=== PATIENT | female | born 1995 | race Caucasian/White ===

== ENCOUNTER 2016-02-26 23:01 | Emergency (ER) ==
[2016-02-26 23:01] VITALS: BMI 20.1
--- NOTE | 2016-02-26 23:07 | ED.PDOC ---
General ED Provider: Dr. MARISOL MCKEON-ER Chief Complaint: Sore Throat Stated Complaint: my throat is sore Time Seen by Physician: 23:05 Mode of Arrival: Walk-In Information Source: Patient Primary Care Provider: MARISOL MCKEON Nursing and Triage Documentation Reviewed and Agree: Yes EENT Complaint Exam - Throat Complaint/Exam Onset/Duration: 24hrs Symptoms Are: Still present Timimg: Constant Initial Severity: Mild Current Severity: Mild Aggravating: Reports: Eating Alleviating: Reports: None Associated Signs and Symptoms: Reports: Fever, Nasal congestion. Denies: Dysphagia, Drooling, Foreign body sensation, Chills, Cough, Wheezing, Hoarseness , Sinus discomfort, Difficulty breathing, Lethargy, Irritability, Decreased activity, Vomiting, Diarrhea, Decreased hearing, Ear drainage Related History: Reports: Similar Episode Uvula Midline: Yes Emily-tonsillar Fluctuence: No Scarlatinaform Rash Present: No Exanthem: Present: Pharynx Stridor Present: No Sinus Tenderness Present: No Tonsillar Hypertrophy Present: No Tonsillar Exudate Present: No Emily-tonsillar Swelling Present: No Adenopathy Present: No Splenomegaly Present: No Differential Diagnoses: Pharyngitis Review of Systems - Review Of Systems Constitutional: Reports: Fever Eyes: Reports: No symptoms Ears, Nose, Mouth, Throat: Reports: Throat pain, Throat swelling Respiratory: Reports: No symptoms Cardiac: Reports: No symptoms GI: Reports: No symptoms : Reports: No symptoms Musculoskeletal: Reports: No symptoms Skin: Reports: No symptoms Neurological: Reports: No symptoms Endocrine: Reports: No symptoms Hematologic/Lymphatic: Reports: No symptoms All Other Systems: Reviewed and Negative Past Medical History - Past Medical History Endocrine: Reports: None Cardiovascular: Reports: None Respiratory: Reports: None Hematological: Reports: None Gastrointestinal: Reports: None Genitourinary: Reports: None Neuro/Psych: Reports: Migraine, Anxiety Musculoskeletal: Reports: None Cancer: Reports: None - Surgical History General Surgical History: Reports: None - Family History Family History: Reports: None - Social History Smoking Status: Never smoker, Vaping Hx Substance Use: No Alcohol Screening: Occasionally Lives: With family Physical Exam - Physical Exam Appearance: Well-appearing, No pain distress, Well-nourished Eyes: SEBASTIÁN, EOMI, Conjunctiva clear ENT: Rhinorrhea, Erythema Neck: Supple Respiratory: Airway patent, Breath sounds clear, Breath sounds equal, Respirations nonlabored Cardiovascular: RRR, Pulses normal, No rub, No murmur GI/: Soft, Nontender, No masses, Bowel sounds normal, No Organomegaly Musculoskeletal: Normal strength, ROM intact, No edema, No calf tenderness Skin: Warm, Dry, Normal color Neurological: Sensation intact, Motor intact, Reflexes intact, Cranial nerves intact, Alert, Oriented Psychiatric: Affect appropriate Critical Care Note - Critical Care Note Total Time (mins): 0 Course - Course Orders, Labs, Meds: Orders Category Date Time Status RAPID STREP SCREEN [STREP SCREEN] Stat LAB 02/26/16 23:04 Uncollected Departure - Departure Time of Disposition: 23:06 Disposition: HOME SELF-CARE Discharge Problem: Pharyngitis Qualifiers: Pharyngitis/tonsillitis etiology: unspecified etiology Qualifier Code: (J02.9) Acute pharyngitis, unspecified Instructions: Pharyngitis (ED) Condition: Good Pt referred to PMD for follow-up: Yes Additional Instructions: amoxil 500mg tid x 7days--salt water gargles and chlorseptic for pain--recheck in 48hrs if not better Allergies/Adverse Reactions: Allergies No Known Allergies Allergy (Unverified 02/17/14 07:38) Home Medications: Ambulatory Orders Sertraline HCl [Zoloft] 100 mg PO BEDTIME 01/22/16 Hydrocodone/Acetaminophen [[place] 5-325 Tablet] 1 tab PO Q6HR PRN #12 tablet Ibuprofen [Motrin] 600 mg PO Q6H PRN #30 tablet 01/23/16 Disposition Discussed With: Patient
[2016-02-26 23:08] VITALS: BP 117/76; TEMP 98.1
== END 2016-02-26 23:55 | disposition home or self-care (01) ==
LOC: ED 23:01
DX: J02.9 Acute pharyngitis, unspecified (principal)
CPT/HCPCS: 87651; 87880; 99283

== ENCOUNTER 2016-02-28 16:15 | Inpatient (IN) ==
[2016-02-28] MEDS ORDERED: ZOFRAN 4 MG/2 ML IVP PRN (17:07)
[2016-02-28 17:27] LABS: BASOPHILS # (AUTO) 0.1 K/uL (0-0.2); BASOPHILS % (AUTO) 0.9 % (0.0-3.0); EOSINOPHILS % (AUTO) 0.1 % (0.0-7.0); HEMATOCRIT 36.4 % (37.0-47.0); HEMOGLOBIN 11.6 g/dl (12.0-16.0); IMMATURE GRANULOCYTE % (AUTO) 0.1 % (0.0-5.0); LYMPHOCYTES # (AUTO) 4.4 K/uL (0.60-3.4); MEAN CORPUSCULAR HEMOGLOBIN 27.8 pg (27.0-31.0); MEAN CORPUSCULAR HGB CONC 31.9 (31.8-35.4); MEAN CORPUSCULAR VOLUME 87.3 fl (81.0-99.0); MONOCYTES # (AUTO) 0.7 K/uL (0.4-2.0); MONOCYTES % (AUTO) 9.4 (0-10); NEUTROPHILS # (AUTO) 2.3 K/ul (2.0-6.9); NEUTROPHILS % (AUTO) 30.5; PLATELET COUNT 137 10^3/uL (140-440); RED BLOOD COUNT 4.17 10^6/ul (4.20-5.40); WHITE BLOOD COUNT 7.52 K/ul (4.6-10.2)
[2016-02-28 17:32] LABS: MONO INTERNAL QC INTERNAL QC VALID
[2016-02-28 17:43] LABS: SERUM PREGNANCY INTERNAL QC INTERNAL QC VALID
[2016-02-28 17:46] LABS: ALBUMIN/GLOBULIN RATIO 1.14; ANION GAP 13.9; BILIRUBIN,TOTAL 0.47 mg/dL (0.00-1.20); BUN/CREATININE RATIO 10.46; CREATININE 0.86 mg/dL (0.60-1.30); POTASSIUM 3.9 mmol/L (3.5-5.10); TOTAL PROTEIN 7.5 g/dL (6.4-8.2)
[2016-02-28] MEDS: SODIUM CHLORIDE 1,000 ML IV SCH (18:02)
[2016-02-28] MEDS ORDERED: CLEOCIN ONE ×2 (18:03→23:25)
[2016-02-28] MEDS: CLEOCIN 600 MG in SODIUM CHLORIDE 100 ML IV SCH ×2 (18:16→23:35)
[2016-02-28] MEDS: DECADRON 4 MG/ML SDV IVP SCH (18:19)
[2016-02-28] MEDS: DILAUDID 1 MG/ML SYRINGE IVP PRN ×2 (18:19→20:35)
[2016-02-28] MEDS ORDERED: ANCEF 1 GM IV ONE (20:30)
[2016-02-28] MEDS: ANCEF IV SCH (20:36)
[2016-02-28] MEDS: D5W IV SCH (20:36)
[2016-02-28] MEDS ORDERED: ZOLOFT ONE ×2 (20:56→20:59)
[2016-02-28] MEDS ORDERED: NON-FORMULARY MEDICATION (Sertraline Hcl [Zoloft] 100 MG) PO SCH (21:00)
[2016-02-29] MEDS: DECADRON 4 MG/ML SDV IVP SCH ×3 (00:59→17:07)
[2016-02-29] MEDS: DILAUDID 1 MG/ML SYRINGE IVP PRN ×5 (02:03→21:20)
[2016-02-29] MEDS ORDERED: ANCEF 1 GM IV ONE (04:34)
[2016-02-29] MEDS ORDERED: CLEOCIN ONE (04:34)
[2016-02-29] MEDS: ANCEF IV SCH ×2 (04:43→13:08)
[2016-02-29] MEDS: D5W IV SCH ×2 (04:43→13:08)
[2016-02-29] MEDS: CLEOCIN 600 MG in SODIUM CHLORIDE 100 ML IV SCH ×4 (05:34→23:46)
[2016-02-29] MEDS: SODIUM CHLORIDE 1,000 ML IV SCH ×2 (05:35→20:26)
[2016-02-29] MEDS: ZOLOFT PO SCH (20:22)
[2016-03-01] MEDS: DECADRON 4 MG/ML SDV IVP SCH ×3 (01:27→17:17)
[2016-03-01] MEDS: DILAUDID 1 MG/ML SYRINGE IVP PRN ×4 (01:28→14:35)
[2016-03-01] MEDS: CLEOCIN 600 MG in SODIUM CHLORIDE 100 ML IV SCH ×3 (05:13→18:34)
[2016-03-01] MEDS: SODIUM CHLORIDE 1,000 ML IV SCH (09:03)
[2016-03-01] MEDS ORDERED: OCEAN NASAL SPRAY NAS PRN (11:29)
[2016-03-01] MEDS ORDERED: OCEAN NASAL SPRAY NAS ONE (11:39)
[2016-03-01 18:25] VITALS: BP 107/68; TEMP 97.4
[2016-03-01] MEDS ORDERED: FLUARIX QUAD 2016-2017 SYRINGE IM ONE ×2 (19:12→19:20)
[2016-03-01] MEDS: ZOLOFT PO SCH (19:44)
--- NOTE | 2016-04-13 11:54 | SSS ---
DATE OF SERVICE: Admitted 02/28/16; Discharged 03/01/16 PRINCIPAL DIAGNOSIS: 1. TONSILLITIS SECONDARY TO #2 2. INFECTIOUS MONONUCLEOSIS DISCUSSION: This is a 20-year-old lady who actually presented to the emergency department about two days prior to admission with sore throat. She appeared to have a pharyngitis. At that point she was treated with Amoxicillin. She presented to my office with worsening sore throat, difficulty handling secretions, difficulty in taking fluids. She appeared to have a tonsillitis and at this point as she was having difficulty swallowing, she was admitted for IV hydration and treatment of potential tonsillitis. PAST MEDICAL HISTORY: MEDICATIONS: 1. Sertraline 2. [place] ALLERGIES: NKDA PAST MEDICAL HISTORY: Significant for history of anxiety. PAST SURGICAL HISTORY: Denies any history of surgeries. SOCIAL HISTORY: She does Vape. She uses alcohol socially. Denies ilicit drug use. FAMILY HISTORY: Reviewed and thought not to be pertinent to discussion. REVIEW OF SYSTEMS: No headaches, visual changes, tinnitus, chest pain, shortness of breath, hemoptysis, blood in the stool, urinary symptoms or seizures. PHYSICAL EXAMINATION: VITAL SIGNS: Temperature 101, pulse 90, respirations 18 and blood pressure 120/ 80. HEENT: Pupils are round. Oral cavity reveals tonsils +3 in size. NECK: Reveals shotty nodes noted anteriorly. CHEST: Clear. CARDIOVASCULAR: Regular rate and rhythm. ABDOMEN: Soft, nontender. EXTREMITIES: Distal extremities without cyanosis or edema. CLINICAL COURSE: The patient was admitted, started on IV fluids, antibiotics. Her mono spot test was noted to be positive. We added steroids. We advanced her diet and at time of discharge she was tolerating a soft diet without nausea or vomiting. Her airway was noted to be clear. At this point, she felt she was stable for discharge. Her mother remarked that she gets a sore throat almost on a monthly basis and she has been snoring and therefore, as an outpatient, we will refer her to Dr. Olmstead for consideration of tonsillectomy. Please see orders. MTDD
== END 2016-03-01 19:50 | disposition home or self-care (01) | DRG 866 ==
LOC: MEDSURG B 16:15
PROVIDERS: ADMIT Family Medicine; ATTEND Family Medicine
DX: B27.90 Infectious mononucleosis, unspecified without complication (principal); J03.90 Acute tonsillitis, unspecified; F17.290 Nicotine dependence, other tobacco product, uncomplicated; Z79.899 Other long term (current) drug therapy
CPT/HCPCS: 36415; 80053; 84703; 85025; 86308

== ENCOUNTER 2016-03-29 11:05 | Day surgery (SDC) ==
[2016-03-29 12:12] LABS: URINE PREGNANCY INTERNAL QC INTERNAL QC VALID
[2016-03-29] MEDS ORDERED: ZOFRAN 4 MG/2 ML ONE (13:00)
[2016-03-29] MEDS ORDERED: ROBINOL ONE (13:00)
[2016-03-29] MEDS ORDERED: NEOSTIGMINE IVP ONE (13:00)
[2016-03-29] MEDS ORDERED: DECADRON 4 MG/ML SDV ONE (13:00)
[2016-03-29] MEDS ORDERED: VERSED ONE (13:00)
[2016-03-29] MEDS ORDERED: SUFENTA IVP ONE (13:00)
[2016-03-29] MEDS ORDERED: LACTATED RINGERS 1,000 ML IV SCH (13:00)
[2016-03-29] MEDS ORDERED: DIPRIVAN 20 ML VIAL IVP ONE (13:00)
[2016-03-29] MEDS ORDERED: ZEMURON ONE (13:00)
[2016-03-29] MEDS ORDERED: TYLENOL/CODEINE ELIXIR 120/12 MG/5 ML PO ONE (13:57)
[2016-03-29 15:43] VITALS: BP 103/67; TEMP 98.8
--- NOTE | 2016-03-30 14:20 | OP ---
PREOPERATIVE DIAGNOSIS: TONSILLITIS POSTOPERATIVE DIAGNOSIS: TONSILLITIS OPERATION: TONSILLECTOMY PROCEDURE: The patient was taken to surgery, placed on the table and general anesthesia was administered. The right tonsil was grasped in the area of the superior pole and incision was made along the anterior tonsillar pillar. Dissection carried out inferiorly and tonsil was removed. Uaddds-by-aztmx suture of 0 chromic was placed at the base of the tongue. Identical procedure was performed of the left tonsil where again figure-of- eight suture of 0 chromic was placed at the base of the tongue and also the middle fossa area. The patient's mouth and oropharynx were irrigated copiously with saline, extubated and the patient returned to the recovery room in satisfactory condition. TUCKER
--- NOTE | 2016-03-30 14:22 | DS ---
DISCHARGE DIAGNOSIS: TONSILLITIS SUMMARY: This is a 20-year-old patient with a history of having greater than five episodes of tonsillitis and for this reason she was admitted for tonsillectomy. She did well postoperatively. The patient did well postoperatively and was instructed to return to the office in 3 weeks. Diet as tolerated. Activity as tolerated. The patient was released on Amoxicillin and Tylox with Codeine for pain. TUCKER
== END 2016-03-29 16:04 | disposition home or self-care (01) ==
LOC: SURG 11:05
PROVIDERS: ATTEND Otolaryngology
DX: J35.01 Chronic tonsillitis (principal); D10.4 Benign neoplasm of tonsil
CPT/HCPCS: 81025

== ENCOUNTER 2017-11-20 07:26 | Outpatient (CLI) ==
--- NOTE | 2017-11-20 10:20 | US ---
EXAM: Ultrasound abdomen limited. HISTORY: Right upper quadrant pain. COMPARISON: 12/16/2013. TECHNIQUE: Abdominal, real time with image documentation: limited (eg, single organ, quadrant, foll ow-up) FINDINGS: The liver demonstrates homogeneous echotexture without intrahepatic biliary dilatation. P ortal venous flow is normal in direction. The gallbladder is without shadowing stones, wall thickeni ng or pericholecystic fluid. Common duct measures approximately 0.3 cm. Visualized portions of the pancreas are unremarkable. IMPRESSION: No sonographic abnormality of the liver, gallbladder or biliary system.
== END 2017-11-20 07:27 | disposition home or self-care (01) ==
LOC: RAD 07:26
PROVIDERS: ATTEND Family Medicine
DX: R10.11 Right upper quadrant pain (principal)

== ENCOUNTER 2017-11-22 11:02 | Outpatient (CLI) ==
--- NOTE | 2017-11-22 13:26 | NM ---
EXAM: Hepatobiliary imaging HISTORY: Right upper quadrant pain COMPARISON: Abdominal ultrasound on 11/20/2017 showed no abnormality. TECHNIQUE: Patient was injected 5.1 mCi of technetium 99m Choletec intravenously. Multiple anterior scintigraphic images of the right upper quadrant region of the abdomen were obtained up to 1 hour int erval. Patient was subsequently given fatty meal and gallbladder ejection fraction was calculated. FINDINGS: There is normal visualization of liver, gallbladder, bile duct and small bowel loops. Gall bladder ejection fraction is 25% which is abnormal. 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
== END 2017-11-22 11:03 | disposition home or self-care (01) ==
LOC: RAD 11:02
PROVIDERS: ATTEND Family Medicine
DX: R10.11 Right upper quadrant pain (principal)